=== PATIENT | male | born 1985 | race Caucasian/White ===

== ENCOUNTER 2017-01-25 15:33 | Emergency (ER) | payer MEDICAID ==
[~2017-01-25] VITALS: Ht 160 cm; Wt 90.0 kg
[~2017-01-25 15:33] MED LIST: AMOXICILLIN875 MG PO; CLEOCIN HC150 MG/CAP PO; FLAGYL500 MG PO; LORTAB 5/500 501 TAB PO; NAPROSYN500 MG PO; NKDA; NO HOME MEDICATIONS; PEN-VEE K250 MG PO; PEN-VEE K500 MG PO; PERCOCET 325 MG1 TA2 PO; PREDNISONE10 MG PO; ULTRAM 50MG TAB50 MG PO
[2017-01-25 15:37] VITALS: BP 125/73; TEMP 98.8
[2017-01-25] MEDS ORDERED: CLEOCIN HCL300 MG PO (16:51)
[2017-01-25] MEDS ORDERED: NORCO 325 MG-51 TAB PO (16:51)
[2017-01-25 17:14] VITALS: PULSE 70
== END 2017-01-25 17:15 | disposition home or self-care (01) ==
LOC: COL.ER 15:33
DX: K08.89 Other specified disorders of teeth and supporting structures (principal); F17.210 Nicotine dependence, cigarettes, uncomplicated

== ENCOUNTER 2017-01-29 14:39 | Emergency (ER) | payer MEDICAID ==
[~2017-01-29] VITALS: Ht 160 cm; Wt 88.2 kg
[~2017-01-29 14:39] MED LIST changes: +CLEOCIN HCL300 MG PO; +NORCO 325 MG-51 TAB PO
[2017-01-29 14:41] VITALS: BP 116/78; PULSE 95; TEMP 97.8
[2017-01-29] MEDS ORDERED: TYLENOL W/COD1 UDTAB PO (15:17)
== END 2017-01-29 15:27 | disposition home or self-care (01) ==
LOC: COL.ER 14:39
DX: K08.89 Other specified disorders of teeth and supporting structures (principal); K04.7 Periapical abscess without sinus; F17.210 Nicotine dependence, cigarettes, uncomplicated

== ENCOUNTER 2017-02-19 15:23 | Emergency (ER) | payer MEDICAID ==
[~2017-02-19] VITALS: Ht 160 cm; Wt 87.7 kg
[~2017-02-19 15:23] MED LIST changes: +TYLENOL W/COD1 UDTAB PO
[2017-02-19 15:25] VITALS: TEMP 98.2
[2017-02-19 17:32] LABS: PH 6 (5-8); SQUAMOUS EPITHELIAL 0-2 /hpf; URINE APPEARANCE Clear; URINE BACTERIA None Seen /hpf; URINE BILIRUBIN Negative (NEGATIVE); URINE BLOOD 2+ (NEGATIVE); URINE COLOR Yellow; URINE GLUCOSE Negative (NEGATIVE); URINE KETONE Negative (NEGATIVE); URINE WBC 0-2 /hpf
[2017-02-19 19:04] LABS: BASO # 0.1 (0.0-0.2); BASO % 0.6 % (0.0-2.0); EOS # 0.2 (0.0-0.7); EOS % 1.8 % (0-4.0); GRAN # 5.7 (1.4-6.5); GRAN % 52.3 % (42.2-75.2); HEMATOCRIT 46.8 % (42.0-52.0); HEMOGLOBIN 16.2 g/dl (13.5-18.0); LYMPH % 37.4 % (20.0-51.0); MEAN CELL VOLUME 90 fl (80.0-100.0); MEAN CORPUSCULAR HEMOGLOBIN 31 pg (27.0-31.0); MEAN CORPUSCULAR HGB CONC 35 g/dl (33.0-37.0); MEAN PLATELET VOLUME 10.1 fl (7.4-10.4); MONO # 0.8 (0.1-0.6); MONO % 7.3 % (1.7-9.3); PLATELET COUNT 216 K/mm3 (130-400); RED BLOOD COUNT 5.19 M/mm3 (4.20-5.60); REDCELL DISTRIBUTION WIDTH-CV 12.7 % (11.5-14.5); WHITE BLOOD COUNT 10.8 K/mm3 (4.8-10.8)
[2017-02-19 19:11] LABS: ADJUSTED CALCIUM 8.8 mg/dL (8.4-10.2); ALBUMIN 4.5 gm/dL (3.5-5.0); BILIRUBIN,TOTAL 0.5 mg/dL (0.0-1.0); CALCIUM 9.2 mg/dL (8.4-10.2); CREATININE, serum 0.93 mg/dL (0.66-1.25); POTASSIUM 4.3 mmol/L (3.4-5.0); TOTAL PROTEIN 7.1 gm/dL (6.4-8.2)
[2017-02-19] MEDS ORDERED: NORCO 325 MG-51 TAB PO (19:22)
[2017-02-19] MEDS ORDERED: MOTRIN 800800 MG/TAB PO (19:22)
[2017-02-19 19:45] VITALS: BP 134/67; PULSE 84
== END 2017-02-19 19:46 | disposition home or self-care (01) ==
LOC: COL.ER 15:23
PROVIDERS: Emergency Medicine
DX: S30.0XXA Contusion of lower back and pelvis, initial encounter (principal); W11.XXXA Fall on and from ladder, initial encounter; Y92.009 Unspecified place in unspecified non-institutional (private) residence as the place of occurrence of the external cause; R31.29 Other microscopic hematuria
CPT/HCPCS: Q9967

== ENCOUNTER 2017-02-26 15:32 | Emergency (ER) | payer MEDICAID ==
[~2017-02-26] VITALS: Ht 162.6 cm; Wt 87.7 kg
[~2017-02-26 15:32] MED LIST changes: +MOTRIN 800800 MG/TAB PO
[2017-02-26 15:37] VITALS: BP 122/69; TEMP 97.8
[2017-02-26] MEDS ORDERED: NORCO 325 MG-51 TAB PO (16:14)
[2017-02-26] MEDS ORDERED: FLEXERIL 1010 MG/TAB PO (16:14)
[2017-02-26 16:36] VITALS: PULSE 87
== END 2017-02-26 16:37 | disposition home or self-care (01) ==
LOC: COL.ER 15:32
DX: S30.0XXD Contusion of lower back and pelvis, subsequent encounter (principal); W11.XXXD Fall on and from ladder, subsequent encounter; M62.830 Muscle spasm of back; Z76.0 Encounter for issue of repeat prescription

== ENCOUNTER 2017-03-05 18:24 | Emergency (ER) | payer MEDICAID ==
[~2017-03-05] VITALS: Ht 160 cm; Wt 90.7 kg
[~2017-03-05 18:24] MED LIST changes: +FLEXERIL 1010 MG/TAB PO
[2017-03-05 18:42] VITALS: BP 142/78; PULSE 91; TEMP 97.7
[2017-03-05] MEDS ORDERED: CLEOCIN HCL300 MG PO (19:31)
== END 2017-03-05 19:53 | disposition home or self-care (01) ==
LOC: COL.ER 18:24
DX: K03.81 Cracked tooth (principal); K08.89 Other specified disorders of teeth and supporting structures; F17.210 Nicotine dependence, cigarettes, uncomplicated

== ENCOUNTER 2017-03-07 17:22 | Emergency (ER) | payer MEDICAID ==
[~2017-03-07] VITALS: Ht 162.6 cm; Wt 87.7 kg
[2017-03-07 17:24] VITALS: BP 145/81; PULSE 84; TEMP 98.2
== END 2017-03-07 17:40 | disposition home or self-care (01) ==
LOC: COL.ER 17:22
DX: K08.89 Other specified disorders of teeth and supporting structures (principal); F17.210 Nicotine dependence, cigarettes, uncomplicated; K03.81 Cracked tooth; Z88.0 Allergy status to penicillin

== ENCOUNTER 2017-05-27 19:14 | Emergency (ER) | payer MEDICAID ==
[~2017-05-27] VITALS: Ht 160 cm; Wt 79.1 kg
[2017-05-27 19:24] VITALS: BP 116/78; TEMP 98.8
[2017-05-27 20:30] VITALS: PULSE 98
== END 2017-05-27 20:30 | disposition home or self-care (01) ==
LOC: COL.ER 19:14
DX: S10.86XA Insect bite of other specified part of neck, initial encounter (principal); F17.210 Nicotine dependence, cigarettes, uncomplicated; W57.XXXA Bitten or stung by nonvenomous insect and other nonvenomous arthropods, initial encounter

== ENCOUNTER 2017-06-05 17:19 | Emergency (ER) | payer MEDICAID ==
[~2017-06-05] VITALS: Ht 162.6 cm; Wt 79.1 kg
[2017-06-05 17:25] VITALS: BP 116/62; TEMP 98.6
[2017-06-05 18:40] LABS: PH 6 (5-8); SQUAMOUS EPITHELIAL 0-2 /hpf; URINE APPEARANCE Clear; URINE BACTERIA None Seen /hpf; URINE BILIRUBIN Negative (NEGATIVE); URINE BLOOD Negative (NEGATIVE); URINE COLOR Yellow; URINE GLUCOSE Negative (NEGATIVE); URINE KETONE Negative (NEGATIVE); URINE RBC 0-2 /hpf; URINE UROBILINOGEN Negative (NEGATIVE); URINE WBC 0-2 /hpf
[2017-06-05] MEDS ORDERED: ROBAXIN 75750 MG/TAB PO (18:46)
[2017-06-05 18:54] VITALS: PULSE 69
== END 2017-06-05 18:54 | disposition home or self-care (01) ==
LOC: COL.ER 17:19
PROVIDERS: Physician Assistant Medical
DX: S23.3XXA Sprain of ligaments of thoracic spine, initial encounter (principal); S29.012A Strain of muscle and tendon of back wall of thorax, initial encounter; X50.0XXA Overexertion from strenuous movement or load, initial encounter; Z87.820 Personal history of traumatic brain injury

== ENCOUNTER 2017-07-03 16:06 | Emergency (ER) | payer MEDICAID ==
[~2017-07-03] VITALS: Ht 160 cm; Wt 87.7 kg
[~2017-07-03 16:06] MED LIST changes: +ROBAXIN 75750 MG/TAB PO
[2017-07-03 16:08] VITALS: BP 114/62; TEMP 98.8
[2017-07-03 16:41] LABS: PH 6 (5-8); SQUAMOUS EPITHELIAL 0-2 /hpf; URINE APPEARANCE Clear; URINE BACTERIA Rare /hpf; URINE BILIRUBIN Negative (NEGATIVE); URINE BLOOD Negative (NEGATIVE); URINE COLOR Yellow; URINE GLUCOSE Negative (NEGATIVE); URINE KETONE Negative (NEGATIVE); URINE RBC 0-2 /hpf; URINE UROBILINOGEN Negative (NEGATIVE); URINE WBC 0-2 /hpf
[2017-07-03 17:37] LABS: BASO # 0.1 (0.0-0.2); BASO % 0.5 % (0.0-2.0); EOS # 0.2 (0.0-0.7); EOS % 1.6 % (0-4.0); GRAN # 4.8 (1.4-6.5); GRAN % 49.4 % (42.2-75.2); HEMATOCRIT 46.5 % (42.0-52.0); HEMOGLOBIN 15.9 g/dl (13.5-18.0); LYMPH % 40.6 % (20.0-51.0); MEAN CELL VOLUME 90 fl (80.0-100.0); MEAN CORPUSCULAR HEMOGLOBIN 31 pg (27.0-31.0); MEAN CORPUSCULAR HGB CONC 34 g/dl (33.0-37.0); MEAN PLATELET VOLUME 9.3 fl (7.4-10.4); MONO # 0.7 (0.1-0.6); MONO % 7.3 % (1.7-9.3); PLATELET COUNT 228 K/mm3 (130-400); RED BLOOD COUNT 5.19 M/mm3 (4.20-5.60); REDCELL DISTRIBUTION WIDTH-CV 12.1 % (11.5-14.5); WHITE BLOOD COUNT 9.7 K/mm3 (4.8-10.8)
[2017-07-03 17:50] LABS: ALANINE AMINOTRANSFERASE 34 U/L (21-72); ALBUMIN 4.5 gm/dL (3.5-5.0); ALKALINE PHOSPHATASE 58 U/L (50-136); ANION GAP 8 mmol/L (7-16); BILIRUBIN,TOTAL 0.6 mg/dL (0.0-1.0); BLOOD UREA NITROGEN 11 mg/dL (9-20); CALCIUM 9.4 mg/dL (8.4-10.2); CARBON DIOXIDE 24 mmol/L (22-30); CHLORIDE 105 mmol/L (98-107); CREATININE, serum 0.91 mg/dL (0.66-1.25); GLUCOSE 89 mg/dL (74-106); LIPASE 59 U/L (23-300); POTASSIUM 4.1 mmol/L (3.4-5.0); SODIUM 137 mmol/L (137-145)
[2017-07-03 17:51] LABS: C-REACTIVE PROTEIN < 0.5 mg/dL (0.0-0.9)
[2017-07-03 18:11] LABS: TROPONIN-I < 0.012 ng/mL (0.000-0.034)
[2017-07-03 18:34] VITALS: PULSE 68
== END 2017-07-03 18:35 | disposition home or self-care (01) ==
LOC: COL.ER 16:06
PROVIDERS: Emergency Medicine; Physician Assistant
DX: R10.12 Left upper quadrant pain (principal)

== ENCOUNTER 2017-10-22 23:43 | Emergency (ER) | payer MEDICAID ==
[~2017-10-22] VITALS: Ht 162.6 cm; Wt 83.2 kg
[2017-10-22 23:43] VITALS: TEMP 97.4
[2017-10-22] MEDS ORDERED: CHANTIX START M1 TAB PO (23:57)
[2017-10-22] MEDS ORDERED: CLINDAMYCIN PO (23:58)
[2017-10-22] MEDS ORDERED: PRILOSEC 20MG20 MG PO (23:58)
[2017-10-23] MEDS ORDERED: DOXYCYCLINE 10100 MG PO (00:33)
[2017-10-23] MEDS ORDERED: PREDNISONE20 MG PO (00:33)
[2017-10-23 01:39] VITALS: BP 111/79; PULSE 83
== END 2017-10-23 01:35 | disposition home or self-care (01) ==
LOC: COL.ER 23:43
DX: J45.909 Unspecified asthma, uncomplicated (principal); F17.210 Nicotine dependence, cigarettes, uncomplicated
CPT/HCPCS: J7512

== ENCOUNTER 2018-02-10 18:55 | Emergency (ER) | payer MEDICAID ==
[~2018-02-10] VITALS: Ht 160 cm; Wt 85.5 kg
[~2018-02-10 18:55] MED LIST changes: +CHANTIX START M1 TAB PO; +CLINDAMYCIN PO; +DOXYCYCLINE 10100 MG PO; +PREDNISONE20 MG PO; +PRILOSEC 20MG20 MG PO
[2018-02-10 19:01] VITALS: BP 113/75; TEMP 98.5
[2018-02-10] MEDS ORDERED: CLEOCIN HCL300 MG PO (19:34)
[2018-02-10 19:48] VITALS: PULSE 80
== END 2018-02-10 19:48 | disposition home or self-care (01) ==
LOC: COL.ER 18:55
DX: K08.89 Other specified disorders of teeth and supporting structures (principal); K21.9 Gastro-esophageal reflux disease without esophagitis; F17.210 Nicotine dependence, cigarettes, uncomplicated; Z88.0 Allergy status to penicillin

== ENCOUNTER 2018-02-19 14:32 | Emergency (ER) | payer MEDICAID ==
[~2018-02-19] VITALS: Wt 85.5 kg
[2018-02-19 15:43] VITALS: BP 118/67; PULSE 69; TEMP 98.1
[2018-02-19] MEDS ORDERED: NORCO 325 MG-51 TAB PO (16:24)
== END 2018-02-19 16:35 | disposition home or self-care (01) ==
LOC: COL.ER 14:32
DX: K08.89 Other specified disorders of teeth and supporting structures (principal); F17.210 Nicotine dependence, cigarettes, uncomplicated

== ENCOUNTER 2018-03-20 17:36 | Emergency (ER) | payer MEDICAID ==
[~2018-03-20] VITALS: Ht 162.6 cm; Wt 82.3 kg
[2018-03-20 17:39] VITALS: BP 110/73; TEMP 97.4
[2018-03-20 19:17] VITALS: PULSE 59
== END 2018-03-20 19:17 | disposition home or self-care (01) ==
LOC: COL.ER 17:36
DX: R51 Headache (principal); F17.210 Nicotine dependence, cigarettes, uncomplicated
CPT/HCPCS: J1200; J1885; J2550; J2765; J7030

== ENCOUNTER 2018-09-22 23:00 | Emergency (ER) | payer MEDICAID ==
[~2018-09-22] VITALS: Ht 162.6 cm; Wt 75.0 kg
[2018-09-22 23:09] VITALS: BP 115/56; TEMP 97.3
[2018-09-23] MEDS ORDERED: NORCO 325 MG-51 TAB PO (00:09)
[2018-09-23 00:19] VITALS: PULSE 84
== END 2018-09-23 00:20 | disposition home or self-care (01) ==
LOC: COL.ER 23:00
DX: S86.912A Strain of unspecified muscle(s) and tendon(s) at lower leg level, left leg, initial encounter (principal); Z88.0 Allergy status to penicillin; F17.210 Nicotine dependence, cigarettes, uncomplicated; X50.0XXA Overexertion from strenuous movement or load, initial encounter

== ENCOUNTER 2019-02-27 18:12 | Emergency (ER) | payer BC ==
[~2019-02-27] VITALS: Ht 162.6 cm; Wt 79.5 kg
[2019-02-27] MEDS ORDERED: NORCO 325 MG-51 TAB PO (18:49)
[2019-02-27 18:53] VITALS: BP 123/80; PULSE 63; TEMP 100.2
== END 2019-02-27 19:04 | disposition home or self-care (01) ==
LOC: COL.ER 18:12
DX: K08.89 Other specified disorders of teeth and supporting structures (principal); F17.210 Nicotine dependence, cigarettes, uncomplicated; Z88.0 Allergy status to penicillin

== ENCOUNTER 2019-10-12 14:19 | Emergency (ER) | payer MEDICAID ==
[~2019-10-12] VITALS: Ht 162.6 cm; Wt 88.2 kg
[2019-10-12 14:38] VITALS: BP 113/61; TEMP 98.5
[2019-10-12] MEDS ORDERED: OMNICEF 300MG300 MG PO (15:47)
[2019-10-12] MEDS ORDERED: PREDNISONE20 MG PO (15:47)
[2019-10-12 16:19] VITALS: PULSE 66
== END 2019-10-12 16:20 | disposition home or self-care (01) ==
LOC: COL.ER 14:19
DX: J20.9 Acute bronchitis, unspecified (principal); H66.92 Otitis media, unspecified, left ear; F17.210 Nicotine dependence, cigarettes, uncomplicated; Z88.0 Allergy status to penicillin; Z98.890 Other specified postprocedural states
CPT/HCPCS: J1885

== ENCOUNTER 2020-05-25 10:00 | Outpatient (RCR) | payer MEDICAID ==
[~2020-05-25 10:00] MED LIST changes: +OMNICEF 300MG300 MG PO
[2020-05-26] MEDS ORDERED: NORCO 325 MG-51 TAB PO (14:39)
[2020-05-26] MEDS ORDERED: CLEOCIN HCL300 MG PO (14:39)
[2020-06-06] MEDS ORDERED: MEDROL 4MG DOSPA4 MG PO (14:47)
== END 2020-06-22 11:08 | disposition home or self-care (01) ==
LOC: WSOT 10:00
DX: G56.03 Carpal tunnel syndrome, bilateral upper limbs (principal)

== ENCOUNTER 2020-05-26 14:11 | Emergency (ER) | payer MEDICAID ==
[~2020-05-26] VITALS: Ht 162.6 cm; Wt 86.4 kg
[2020-05-26 14:14] VITALS: BP 109/73; TEMP 97.4
[2020-05-26] MEDS ORDERED: CLEOCIN HCL300 MG PO (14:39)
[2020-05-26] MEDS ORDERED: NORCO 325 MG-51 TAB PO (14:39)
[2020-05-26 15:11] VITALS: PULSE 93
== END 2020-05-26 15:11 | disposition home or self-care (01) ==
LOC: COL.ER 14:11
DX: K02.9 Dental caries, unspecified (principal); K04.7 Periapical abscess without sinus; F17.210 Nicotine dependence, cigarettes, uncomplicated; Z79.52 Long term (current) use of systemic steroids

== ENCOUNTER 2020-06-06 14:26 | Emergency (ER) | payer MEDICAID ==
[~2020-06-06] VITALS: Ht 162.6 cm; Wt 86.4 kg
[2020-06-06 14:40] VITALS: TEMP 98.1
[2020-06-06] MEDS ORDERED: MEDROL 4MG DOSPA4 MG PO (14:47)
[2020-06-06 15:48] LABS: BASO # 0.1 (0.0-0.2); BASO % 0.8 % (0.0-2.0); EOS # 0.3 (0.0-0.7); EOS % 3.3 % (0-4.0); GRAN # 4.3 (1.4-6.5); GRAN % 49.1 % (42.2-75.2); HEMATOCRIT 47.9 % (42.0-52.0); HEMOGLOBIN 16.4 g/dl (13.5-18.0); LYMPH # 3.2 (1.2-3.4); LYMPH % 36.4 % (20.0-51.0); MEAN CELL VOLUME 91 fl (80.0-100.0); MEAN CORPUSCULAR HEMOGLOBIN 31 pg (27.0-31.0); MEAN CORPUSCULAR HGB CONC 34 g/dl (33.0-37.0); MEAN PLATELET VOLUME 9.5 fl (7.4-10.4); MONO # 0.8 (0.1-0.6); MONO % 9.5 % (1.7-9.3); PLATELET COUNT 225 K/mm3 (130-400); RED BLOOD COUNT 5.29 M/mm3 (4.20-5.60); REDCELL DISTRIBUTION WIDTH-CV 12.6 % (11.5-14.5)
[2020-06-06 15:50] LABS: ALANINE AMINOTRANSFERASE 32 U/L (4-49); ALBUMIN 4.5 gm/dL (3.5-5.0); ALKALINE PHOSPHATASE 60 U/L (50-136); ANION GAP 8 mmol/L (7-16); AST,SGOT 26 U/L (15-37); BILIRUBIN,TOTAL 0.4 mg/dL (0.0-1.0); BLOOD UREA NITROGEN 12 mg/dL (9-20); CALCIUM 9.9 mg/dL (8.4-10.2); CARBON DIOXIDE 24 mmol/L (22-30); CHLORIDE 106 mmol/L (98-107); CREATININE, serum 0.99 (0.66-1.25); GLUCOSE 90 mg/dL (74-106); POTASSIUM 4.4 mmol/L (3.4-5.0); SODIUM 138 mmol/L (137-145); TOTAL PROTEIN 7.6 gm/dL (6.4-8.2)
[2020-06-06 15:57] LABS: INR 0.9 (0.8-3.0); PROTHROMBIN TIME 9.9 SECONDS (9.7-12.8)
[2020-06-06 16:03] LABS: TROPONIN-I < 0.012 ng/mL (0.000-0.035)
[2020-06-06 16:46] VITALS: BP 114/68; PULSE 73
== END 2020-06-06 16:48 | disposition home or self-care (01) ==
LOC: COL.ER 14:26
PROVIDERS: Family Medicine
DX: M79.642 Pain in left hand (principal); M79.641 Pain in right hand; R06.00 Dyspnea, unspecified; Z98.890 Other specified postprocedural states

== ENCOUNTER 2020-12-16 18:01 | Emergency (ER) | payer MEDICAID ==
[~2020-12-16] VITALS: Ht 162.6 cm; Wt 85.5 kg
[~2020-12-16 18:01] MED LIST changes: +MEDROL 4MG DOSPA4 MG PO
[2020-12-16 18:12] VITALS: TEMP 98.6
[2020-12-16] MEDS ORDERED: PRILOSEC 20MG20 MG PO (18:43)
[2020-12-16 20:05] VITALS: BP 101/65; PULSE 66
== END 2020-12-16 20:06 | disposition home or self-care (01) ==
LOC: COL.ER 18:01
DX: J06.9 Acute upper respiratory infection, unspecified (principal); K21.9 Gastro-esophageal reflux disease without esophagitis; F17.210 Nicotine dependence, cigarettes, uncomplicated; Z20.822 Contact with and (suspected) exposure to COVID-19; Z88.0 Allergy status to penicillin; Z88.6 Allergy status to analgesic agent
CPT/HCPCS: J1885; J2405

== ENCOUNTER 2020-12-20 15:36 | Emergency (ER) | payer MEDICAID ==
[~2020-12-20] VITALS: Ht 162.6 cm; Wt 85.5 kg
[2020-12-20 16:20] VITALS: BP 118/69; PULSE 83; TEMP 98.3
== END 2020-12-20 16:20 | disposition home or self-care (01) ==
LOC: COL.ER 15:36
DX: Z02.79 Encounter for issue of other medical certificate (principal); F17.200 Nicotine dependence, unspecified, uncomplicated; Z88.0 Allergy status to penicillin; Z88.5 Allergy status to narcotic agent